=== PATIENT | male | born 1990 ===

== ENCOUNTER → 2017-03-12 | Outpatient (CLI) | payer BC ==
[~2017-03-12] MED LIST: MULT-506 PO
--- NOTE | 2017-03-12 10:44 | DIAGNOSTIC IMAGING REPORT ---
RIGHT KNEE 1 OR 2 VIEWS CLINICAL HISTORY: RIGHT KNEE PAIN Right pain COMPARISON: None. DISCUSSION: Evidence for prior anterior cruciate ligament repair. All major joint compartments are well preserved. No significant joint effusion. There is no evidence for soft tissue swelling. IMPRESSION: Anatomic alignment status post anterior cruciate ligament repair/grafting procedure Electronically signed by: Leo Amador M.D. 03/12/2017 10:43 AM Dictated Date/Time: 03/12/2017 10:38 AM
== END | disposition home or self-care (01) ==
LOC: C.RDSM 10:30
PROVIDERS: ATTEND Physician Assistant
DX: M25.561 Pain in right knee (principal)

== ENCOUNTER → 2017-03-13 | Day surgery (SDC) | payer BC ==
[2017-03-05 13:45] VITALS: Ht 180.3 cm; Wt 75.0 kg
[~2017-03-13] VITALS: Ht 180.3 cm; Wt 75.0 kg
[~2017-03-13] MED LIST changes: +ATROPINE SULFATE 0.1 MG/ML 5ML SYR IV PRN; +CEFAZOLIN 2000 MG/60 ML D5W IV SCH; +DEXAMETHASONE SOD INJ 4 MG/ML VIAL ONE; +EpHEDrine SULFATE INJ 50 MG/ML AMP IV PRN; +FENTANYL CITRATE INJ 50 MCG/1 ML 2 ML VIAL ONE; +HYDROmorphone INJ 1 MG/ML SYR IV PRN; +HYDROmorphone INJ 1 MG/ML SYR ONE; +LACTATED RINGER'S 1000ML 1,000 ML IV SCH; +LEVOFLOXACIN 500 MG TAB ONE; +LEVOFLOXACIN 500 MG TAB PO SCH; +LIDOCAINE HCL 1% MPF 2 ML VIAL ONE; +LIDOCAINE HCL 2% 2 ML VIAL (20MG/ML) ONE; +MIDAZOLAM HCL 1 MG/ML 2ML VIAL ONE; +ONDANSETRON INJ 2 MG/ML 2 ML VIAL IV PRN; +ONDANSETRON INJ 2 MG/ML 2 ML VIAL ONE; +OXYCODONE/ACETAMINOPHEN 5-325 TAB PO PRN; +PROPOFOL IV EMULSION 10 MG/ML 20 ML VIAL IV ONE; +ROPIVACAINE 0.5% 5 MG/ML 30 ML VIAL ONE; +SODIUM CHLORIDE 0.9% 1000ML 1,000 ML IV SCH
--- NOTE | 2017-03-13 11:32 | History & Physical Bridge Note ---
H&P Re-Evaluation Bridge Note: I have examined the patient, reviewed the History & Physical and in the interval since the performance of the History & Physical I have noted the following changes of clinical significance: No changes noted
--- NOTE | 2017-03-13 11:34 | Discharge Instructions ---
Discharge Instructions Date of Service March 13, 2017. Admission Reason for Admission: Right Knee Acl Graft Tear Discharge Discharge Diagnosis / Problem: same Discharge Goals Goal(s): Decrease discomfort, Improve function Activity Recommendations Activity Limitations: as noted below Lifting Limitations: until after follow-up appointment Exercise/Sports Limitations: until after follow-up appointment May Resume Sexual Activity: when tolerated Shower/Bathe: keep incision dry Driving or Machine Use: Weightbearing Status: Right toe touch . Instructions / Follow-Up Instructions / Follow-Up The following instructions are a useful guide to questions you may have after your Anterior Cruciate Ligament Reconstruction surgery. If you have any questions contact the office at . ACTIVITY RECOMMENDATIONS: * Heavy manual labor is not permitted until 4-6 months after surgery. * Sports are not permitted until 6-9 months after surgery. * Return to activity is individualized. * DRIVING: Driving is not permitted until 3-4 weeks after surgery at a minimum. Please ask your doctor when it is safe to resume driving. If you have an automatic vehicle and your left leg has been operated on, then you may begin driving as soon as you are comfortable and can drive safely. * BATHING: You may shower or sponge-bathe immediately after surgery. The dressing will need to be covered with a plastic bag or plastic wrap until the dressing is changed on the fourth or fifth day after surgery. Once the dressing has been changed on the fourth or fifth day after surgery, you may shower and get the incision wet. * Wash with regular soap and water. * Do not bathe (submerge the incision), soak, swim or use a hot tub until the incision is completely healed over with normal skin and the doctor has given the OK to proceed. * There is no need to apply any ointments, powders or salves to your incision. * Do not apply alcohol or hydrogen peroxide directly to the incision. Diluted peroxide (50:50 mixture with sterile saline) may be used to clean dried blood from around the incision area. WORK/SCHOOL: * You may return to sedentary work or school when you are feeling comfortable. This is usually 3-7 days after surgery. * Expect increased discomfort with increased activity. Continue to elevate and ice the leg as much as possible. DIET: * Resume previous diet. MEDICATIONS: * You will have a prescription for pain medication and an anti-inflammatory medication after surgery. Use the pain pills for severe pain and the anti-inflammatory for less severe pain. * Once the pain pills have run out, try to use the anti-inflammatory. If this is not effective then contact the office for assistance. * The pain medication may cause nausea, constipation and sleepiness. You should see how they affect you before driving or similar activity. * The anti-inflammatory may cause stomach upset and bleeding. If this occurs, let your doctor know immediately . * Some patients may need blood clot prevention. This can be done with either a pill or a simple shot. Your doctor will advise you on when to begin these medications and how to take them. * Do not take aspirin or other anti-inflammatory products (i.e. Advil or Aleve ) if taking blood thinner medication. * Take a stool softener like Colace or a stimulant like Senokot to prevent constipation. SPECIAL CARE INSTRUCTIONS: The following instructions are a useful guide to questions you may have after your surgery. If you have any questions contact the office at . ICE: * You have the option of an ice cooler, gel packs or ice bags. * If you have an ice cooler, refer to the instructions for that device. * If you do not have an ice cooler, then you will need to use ice bags or gel packs. * Do not apply ice directly to the skin. * Use a thin dressing or stockinet between the skin and ice bag. * Apply ice for 20-30 minutes and repeat every 2-4 hours. This is especially important for the first 7-10 days after surgery. * Once the pain improves, use ice as needed. * The ice cooler can be used continuously. ELEVATION: * Keep your leg elevated at or above the level of your heart as much as possible. * Expect some increased discomfort and swelling if you are standing for any length of time. * When lying down, avoid placing anything under your knee. Rather, prop your leg up by placing several pillows under your heel or calf. DRESSING: * Your dressing will be changed at your first therapy appointment approximately 4-5 days after surgery. * Band-Aids, tape strips or gauze may be applied. You may then change your dressing daily. * Always wash your hands prior to touching the incision area. * Reapply dressing followed by the Avila wrap or Tubi-campus executive director stockinet, ice cooling pad and then the brace. * Once the stitches are removed, you may leave the wound open to air or cover with an Avila Bandage or [employer]i-camp[employer] executive director stockinet. * If you have been given a white elastic stocking (KAVITA hose), wear as much as possible for the first 1-3 weeks depending on swelling. * Expect some bloody drainage for the first few days after surgery. * Leave the tape strips in place for 5-7 days. * Band-Aids and gauze may be changed daily. CRUTCHES: * You will need to use crutches after surgery. * Until your first doctor's appointment, you must use your crutches at all times when walking and should put no more than 50% of your normal weight on the surgical leg. * After your first doctor's appointment, you may gradually progress to full weight bearing and discontinue crutches as tolerated under the guidance of your therapist. * If you have had a microfracture procedure done, you may be advised to be non- weight bearing for up to 6 weeks. BRACE: * After surgery, you will be placed into a range of motion brace locked with your leg straight. This brace is to be worn at all times when walking (even with the crutches) and sleeping until your first doctors appointment. * The brace may be removed for therapy. * After your first therapy appointment, your therapist will open the brace to allow bending of the knee once your muscles are working better. * Until your first doctor's appointment, you should sleep with your brace locked with your knee fully straight. * If you have chosen to use a functional ACL brace then this brace will be supplied about 2-3 months after your surgery. During that time, you will attend therapy 2- 3 times per week. You will also need to do daily exercises for range of motion and strength as instructed. PROBLEMS/QUESTIONS: * If you have any problems such as severe pain, numbness, tingling or high fevers or if you have any questions, please contact the office at [phone]. * It is not uncommon to have some numbness and tingling after the surgery especially if you have had a nerve block done. This should gradually improve over the first 1- 2 days. If this persists longer or worsens then contact the office. FOLLOW UP VISIT: * If not already scheduled, please call the office at to schedule follow-up appointments for approximately 10 days and one month after surgery followed by monthly appointments thereafter. Current Hospital Diet Patient's current hospital diet: Discharge Diet Recommended Diet: Regular Diet Procedures Procedures Performed: acl reconstruction Pending Studies Studies pending at discharge: no Medical Emergencies . Who to Call and When: Medical Emergencies: If at any time you feel your situation is an emergency, please call 911 immediately. . Non-Emergent Contact Non-Emergency issues call your: Specialist Call Non-Emergent contact if: temperature is above 101.5 . "Provider Documentation" section prepared by Chris Ardon. . VTE Core Measure Inpt VTE Proph given/why not?: Other Anticoagulation
--- NOTE | 2017-03-13 14:17 | [facility] Post Operative Brief Note ---
Immediate Operative Summary Operative Date March 13, 2017. Pre-Operative Diagnosis Right Knee Anterior Cruciate Ligament Graft Tear Post-Operative Diagnosis Same Procedure(s) Performed Right Knee Arthroscopic Revision Anterior Cruciate Ligament With Patellar Tendon Autograft, Medial and Lateral Meniscus Repair, Microfracture of the Trochlea Surgeon Dr. Ardon Painter And Body Work Surgeon(s) Scot Campbell, Fellow; Trice Mace PA-C Estimated Blood Loss 75ML Findings MMT/LMT/ACL tear/ trochlear lesion Fluids (cc crystalloids) 1100cc Specimens None Drains none Anesthesia LMA/block Complication(s) None Disposition Recovery Room / PACU
--- NOTE | 2017-03-13 14:41 | OPERATIVE REPORT ---
DATE OF OPERATION: 03/13/2017 SURGEON: Dr. Ardon. BALE OPENER: Nimisha. SECOND BALE OPENER: alba PREOPERATIVE DIAGNOSIS: Anterior cruciate ligament graft failure with possible meniscus tear, right knee. POSTOPERATIVE DIAGNOSES: 1. Anterior cruciate ligament graft failure. 2. Medial meniscus tear, repairable. 3. Lateral meniscus tear, repairable. 4. Articular lesion central trochlea, grade 4. OPERATION PERFORMED: 1. Exam under anesthesia. 2. Diagnostic arthroscopy. 3. Arthroscopic chondroplasty and microfracture of 3/4 cm2 area of the trochlea. 4. Medial meniscus repair. 5. Lateral meniscus repair. 6. Endoscopic ACL reconstruction using central 1/3 patellar tendon autograft. PERIOPERATIVE SITUATION: Medically cleared male with knee giving way catching with physical exam, x-ray and MRI scan consistent with the above diagnosis. He wanted to proceed with surgical treatment, options were allograft versus autograft, he elected autograft, he elected patellar tendon central 1/3. PROCEDURE: The patient was properly identified, site verified, consent verified, 2 grams of Ancef confirmed as being given. Right lower extremity was examined and compared to the left and a grossly positive Chapis, trace pivot glide. It virtually full extension, full flexion. He was then sterilely prepped and draped in usual routine fashion. Tourniquet inflated to 275 mmHg for a total tourniquet time 88 minutes. The knee was scoped through an inframedial and infralateral portal. Inspection of the joint revealed the articular lesion of the meniscus repair in the medial posterior horn and the lateral posterior horn. The chondroplasty was performed with microfracture. The medial meniscus was then rasped and repaired with one FasT-Fix posteriorly and one centrally, this fixed it nicely. The meniscus was stable to probing. The total length of the meniscus tear nearly was, roughly a centimeter. The lateral meniscus tear was roughly a centimeter and a half and was very hypermobile and was rasped and then secured with 2 excellent sutures with an excellent repair. The stump of the ACL was torn off the tibia, there was a large piece that was flipping, this was debrided, this left roughly 10% of the tibial attachment intact;the femoral attachment was vertical. There was hemorrhage throughout the graft that was debrided easily, the PCL was normal. Tunnel notchplasty was performed. Once it was identified that we could do the procedure, an anterior incision was made and tibial tunnel made and enlarged 10 mm, femoral tunnel then made and enlarged to 10 mm in excellent position and all bone debris removed. Central 1/3 patellar tendon was then harvested. Bone blocks being 20 x 10 x 5 off the patella and 30 x 10 x 5 off the tibia. They were then tagged with #2 Ethibond on the tibia and TightRope on the femur. The graft was then passed and secured proximally, but it was a little bit spongy so it was elected to open that up and to put a malleolar screw with washer and that tied that down nicely, it was fixed on the tibia with a 7 x 20 mm round headed interference screw and then tied over the old tibial post screw that was there with excellent fixation. The knee had full hyperextension and good flexion, stable Chapis. The pivot shift was not done based on the meniscus repairs. Wounds were then irrigated and closed using #1 Ethibond for the fascial layer proximal lateral incision and for the distal medial incision then 2-0 Vicryl for the subcutaneous tissue and the tibial block bone trimming was used to graft the patellar harvest site and then stainless steel clips for skin. Appropriate dressing and brace applied. The patient lost approximately 75 mL of blood Once the tourniquet was down. IVF was 1100 mL of crystalloid. DVT prophylaxis will be with aspirin. The weightbearing to tolerance since the lesions on the trochlea. I attest to the content of the Intraoperative Record and any orders documented therein. Any exceptions are noted below. OPALD
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
[2017-03-13 15:18] VITALS: TEMP 36.9
--- NOTE | 2017-03-13 15:26 | Anesthesia Progress Nt - [facility] ---
Anesthesia Post Op Note Date & Time March 13, 2017 at 15:26 Vital Signs Pain Intensity: 6 Vital Signs Past 12 Hours Date Time Temp Pulse Resp B/P Pulse Ox O2 Delivery O2 Flow Rate FiO2 03/13/17 15:10 143/86 03/13/17 15:08 37.2 78 16 143/86 99 Room Air 03/13/17 15:07 86 27 100 03/13/17 15:07 86 27 03/13/17 15:05 128/88 03/13/17 15:02 61 15 03/13/17 15:02 60 15 100 03/13/17 15:00 138/88 03/13/17 14:57 69 12 100 03/13/17 14:57 69 12 03/13/17 14:55 143/95 03/13/17 14:52 73 19 100 03/13/17 14:52 75 19 03/13/17 14:50 126/81 03/13/17 14:47 87 20 03/13/17 14:47 87 20 100 03/13/17 14:45 123/79 03/13/17 14:42 74 15 03/13/17 14:42 75 15 100 03/13/17 14:40 111/80 03/13/17 14:37 63 14 100 03/13/17 14:37 63 14 03/13/17 14:35 121/77 03/13/17 14:32 64 13 03/13/17 14:32 65 13 128/70 99 03/13/17 14:32 36.2 65 12 128/70 100 Room Air 6 03/13/17 12:18 22 03/13/17 12:15 130/80 03/13/17 12:15 130/80 03/13/17 12:13 67 29 99 03/13/17 12:13 66 03/13/17 12:13 66 03/13/17 12:13 67 29 99 03/13/17 12:10 127/82 03/13/17 12:10 127/82 03/13/17 12:08 63 23 99 03/13/17 12:08 65 03/13/17 12:08 63 23 99 03/13/17 12:08 65 03/13/17 12:05 128/80 03/13/17 12:05 128/80 03/13/17 12:03 70 03/13/17 12:03 70 03/13/17 12:03 70 26 100 03/13/17 12:03 70 26 100 03/13/17 12:00 111/78 03/13/17 12:00 111/78 03/13/17 11:58 65 03/13/17 11:58 65 03/13/17 11:58 66 9 100 03/13/17 11:58 66 9 100 03/13/17 11:55 128/79 03/13/17 11:55 128/79 03/13/17 11:53 72 10 100 03/13/17 11:53 72 10 100 03/13/17 11:53 72 03/13/17 11:53 72 03/13/17 11:50 130/76 03/13/17 11:50 130/76 03/13/17 11:48 69 03/13/17 11:48 66 0 100 03/13/17 11:48 66 0 100 03/13/17 11:48 69 03/13/17 11:45 131/87 03/13/17 11:45 131/87 03/13/17 11:43 67 03/13/17 11:43 66 0 99 03/13/17 11:43 66 0 99 03/13/17 11:43 67 03/13/17 11:38 73 0 97 03/13/17 11:38 73 03/13/17 11:38 73 03/13/17 11:38 73 0 97 03/13/17 11:33 67 03/13/17 11:33 66 0 98 03/13/17 11:33 67 03/13/17 11:33 66 0 98 03/13/17 11:28 66 0 97 03/13/17 11:28 67 03/13/17 11:28 67 03/13/17 11:28 66 0 97 03/13/17 11:23 73 03/13/17 11:23 73 03/13/17 11:23 74 0 99 03/13/17 11:23 74 0 99 03/13/17 11:18 65 03/13/17 11:18 65 03/13/17 11:18 66 0 99 03/13/17 11:18 66 0 99 03/13/17 11:13 73 0 98 03/13/17 11:13 73 03/13/17 11:13 73 0 98 03/13/17 11:13 73 03/13/17 11:08 66 0 99 03/13/17 11:08 66 03/13/17 11:08 66 0 99 03/13/17 11:08 66 03/13/17 11:03 76 03/13/17 11:03 76 03/13/17 11:03 75 0 100 03/13/17 11:03 75 0 100 03/13/17 10:58 72 0 99 03/13/17 10:58 71 03/13/17 10:58 71 03/13/17 10:58 72 0 99 03/13/17 10:53 69 03/13/17 10:53 70 0 99 03/13/17 10:53 70 0 99 03/13/17 10:53 69 03/13/17 10:48 62 03/13/17 10:48 60 0 98 03/13/17 10:48 62 03/13/17 10:48 60 0 98 03/13/17 10:43 72 0 100 03/13/17 10:43 72 03/13/17 10:43 72 0 100 03/13/17 10:43 72 03/13/17 10:38 79 0 100 03/13/17 10:38 79 0 100 03/13/17 10:38 78 03/13/17 10:38 78 03/13/17 10:27 36.8 68 16 148/92 16 Room Air Notes Mental Status: alert / awake / arousable, participated in evaluation Pt Amnestic to Procedure: Yes Nausea / Vomiting: adequately controlled Pain: adequately controlled Airway Patency, RR, SpO2: stable & adequate BP & HR: stable & adequate Hydration State: stable & adequate Anesthetic Complications: no major complications apparent
[2017-03-13 16:11] VITALS: BP 148/81; PULSE 81; O2SAT 99
== END | disposition home or self-care (01) ==
LOC: X.SURG 10:13
PROVIDERS: ATTEND Physical Medicine & Rehabilitation Sports Medicine
DX: S83.511A Sprain of anterior cruciate ligament of right knee, initial encounter (principal); S83.281A Other tear of lateral meniscus, current injury, right knee, initial encounter; S83.241A Other tear of medial meniscus, current injury, right knee, initial encounter; W03.XXXA Other fall on same level due to collision with another person, initial encounter; M25.861 Other specified joint disorders, right knee; Y93.66 Activity, soccer

== ENCOUNTER → 2017-03-26 | Outpatient (CLI) | payer BC ==
[~2017-03-26] MED LIST changes: -ATROPINE SULFATE 0.1 MG/ML 5ML SYR IV PRN; -CEFAZOLIN 2000 MG/60 ML D5W IV SCH; -DEXAMETHASONE SOD INJ 4 MG/ML VIAL ONE; -EpHEDrine SULFATE INJ 50 MG/ML AMP IV PRN; -FENTANYL CITRATE INJ 50 MCG/1 ML 2 ML VIAL ONE; -HYDROmorphone INJ 1 MG/ML SYR IV PRN; -HYDROmorphone INJ 1 MG/ML SYR ONE; -LACTATED RINGER'S 1000ML 1,000 ML IV SCH; -LEVOFLOXACIN 500 MG TAB ONE; -LEVOFLOXACIN 500 MG TAB PO SCH; -LIDOCAINE HCL 1% MPF 2 ML VIAL ONE; -LIDOCAINE HCL 2% 2 ML VIAL (20MG/ML) ONE; -MIDAZOLAM HCL 1 MG/ML 2ML VIAL ONE; -ONDANSETRON INJ 2 MG/ML 2 ML VIAL IV PRN; -ONDANSETRON INJ 2 MG/ML 2 ML VIAL ONE; -OXYCODONE/ACETAMINOPHEN 5-325 TAB PO PRN; -PROPOFOL IV EMULSION 10 MG/ML 20 ML VIAL IV ONE; -ROPIVACAINE 0.5% 5 MG/ML 30 ML VIAL ONE; -SODIUM CHLORIDE 0.9% 1000ML 1,000 ML IV SCH
== END | disposition home or self-care (01) ==
LOC: C.RDSM 12:12
PROVIDERS: ATTEND Physical Medicine & Rehabilitation Sports Medicine
DX: M23.51 Chronic instability of knee, right knee (principal)

== ENCOUNTER → 2017-11-26 | Outpatient (CLI) | payer BC, OTHER | END | disposition home or self-care (01) | LOC: C.RDSM 10:34 | PROVIDERS: ATTEND Physical Medicine & Rehabilitation Sports Medicine | DX: M23.51 Chronic instability of knee, right knee (principal) ==